=== PATIENT | female | born 1985 ===

== ENCOUNTER → 2018-10-25 | Outpatient (CLI) | payer BC ==
[~2018-10-25] MED LIST: COCO1000 PO; DEXL60CA6 PO; HYDR2TAB4 PO; LACT1CAP4 PO; LEVO50TA86 PO; MED150I IM; METR-1 PO; MULT1TAB64 PO; PANT20TA26 PO; PER PO; [UNRECOGNIZED DRUG - CODE] PO
== END ==
LOC: LAB 14:07
PROVIDERS: ATTEND Physician Assistant
DX: R42 Dizziness and giddiness (principal)
CPT/HCPCS: 36415; 84484; 85379

== ENCOUNTER 2018-10-31 09:33 | Emergency (ER) | payer BC ==
--- NOTE | 2018-10-31 09:42 | ER Report ---
History and Physical Time Seen By MD: 09:42 HPI/ROS CHIEF COMPLAINT: Patient evaluation for possible venous thromboembolic disease HISTORY OF PRESENT ILLNESS: Patient is a 33-year-old female whose past medical history significant for a left upper extremity DVT in 2002 that was treated with 6 months of anticoagulation followed by recurrence of DVT in 2005 followed by diagnosis of thoracic outlet syndrome and rib removal. Patient states that this past week she's had some episodes of dizziness that's positional but also some left arm numbness and there was some concern about recurrence of blood clot. Patient is not on anticoagulation at that time. Patient was seen at [facility] on Wednesday and was told that her EKG shows "some points of the heart not getting enough oxygen". Further she apparently had an elevated d-dimer. She did follow up with her primary care provider late on Wednesday and was started on 10 mg of Cymbalta given her prior history. She was supposed to follow-up in the cancer center for further workup but instead presented to the emergency department for evaluation. I did discuss the case with Dr. Pavon who is the patient's primary care provider. We will perform a medical workup including ultrasound of the left upper extremity and CTA for pulmonary embolism. REVIEW OF SYSTEMS: Respiratory: No cough, no dyspnea. Cardiovascular: No chest pain, no palpitations. Gastrointestinal: No vomiting, no abdominal pain. Musculoskeletal: No back pain. Left arm numbness Allergies: Coded Allergies: metronidazole (Verified Allergy, Intermediate, RASH, 08/19/18) aspirin (Verified Allergy, Mild, 07/09/08) Home Meds Reported Medications Amitriptyline Hcl (AMITRIPTYLINE HCL) 25 Mg Tablet 10/31/18 Levothyroxine Sodium (LEVOTHYROXINE SODIUM) 25 Mcg Tablet 10/31/18 Alprazolam 0.5 Mg Tab (ALPRAZOLAM 0.5 MG TAB) 0.5 Mg Tablet 10/31/18 Rivaroxaban 10 MG (Xarelto 10 MG) 10 Mg Tablet 10/31/18 Multivitamin (MULTI VITAMIN DAILY) 1 Each Tablet, 1 EACH PO QDAY 11/26/17 Lactobacillus Acidophilus (PROBIOTIC) 1 Each Capsule, 1 EACH PO QDAY, CAPSULE 11/26/17 Coconut Oil (COCONUT OIL) 1,000 Mg Capsule, 2000 MG PO QDAY, CAPSULE 11/26/17 Levothyroxine Sodium (LEVOTHYROXINE SODIUM) 50 Mcg Tablet, 25 MCG PO QDAY, TAB 06/16/17 Discontinued Reported Medications Dexlansoprazole (DEXILANT) 60 Mg , 60 MG PO QDAY 11/26/17 Oxycodone/Acetaminophen (OXYCODONE/ACETAMINOPHEN 5MG/325 MG) 5 Mg/325 Mg Tab, 2 TAB PO Q4-6H PRN, #30 TAB 0 Refills TAKE 1 OR 2 TABLETS BY MOUTH EVERY 4 TO 6 HOURS NEEDED FOR PAIN. TAKE WITH FOOD. 10/10/09 Past Medical/Surgical History Straight prior DVT left upper extremity, history of thoracic outlet syndrome Smoking Status: Former Smoker Hx Alcohol Use: Yes Constitutional Vital Sign - Last 24 Hours 10/31/18 10/31/18 10/31/18 10/31/18 09:33 09:40 09:40 09:48 Temp 98.5 Pulse ??? 90 82 Resp 16 B/P (MAP) 116/80 (92) 116/80 Pulse Ox 99 98 O2 Delivery Room Air 10/31/18 10/31/18 10/31/18 10/31/18 10:03 10:33 10:48 11:03 Pulse 97 83 79 81 Resp 11 14 15 Pulse Ox 98 90 98 10/31/18 11:18 Pulse 81 Resp 25 Pulse Ox 96 Physical Exam General/Constitutional: Patient is awake, alert, nontoxic and in no acute respiratory distress. Head: Normocephalic and atraumatic. Eyes: Conjunctival clear, Pupils are equal and reactive to light. Cardiovascular: Heart is regular rate and rhythm without audible murmurs, rubs or gallops. Pulmonary: Lungs are clear to auscultation bilaterally. There are no wheezes, rales, or rhonchi. Chest rise is symmetrical Abdomen: Soft, nontender, no guarding or peritoneal signs. Extremities: No gross deformities, No peripheral cyanosis. Able to move all 4 extremities. Neuro: Alert and oriented X3, Skin: No rashes, skin is warm dry and well perfused. Medical Decision Making Data Points Result Diagram: 10/31/18 1050 10/31/18 1050 Laboratory Hematology Test 10/31/18 10:50 Red Blood Count 4.72 M/uL (4.17-5.56) Mean Corpuscular Volume 93.8 fL (80.0-96.0) Mean Corpuscular Hemoglobin 31.0 pg (26.0-33.0) Mean Corpuscular Hemoglobin Concent 33.1 g/dL (32.0-36.0) Red Cell Distribution Width 13.0 % (11.5-14.5) Mean Platelet Volume 7.7 fL (7.2-11.1) Neutrophils (%) (Auto) 44.9 % (39.4-72.5) Lymphocytes (%) (Auto) 42.6 % (17.6-49.6) Monocytes (%) (Auto) 6.0 % (4.1-12.4) Eosinophils (%) (Auto) 6.0 % (0.4-6.7) Basophils (%) (Auto) 0.5 % (0.3-1.4) Nucleated RBC Relative Count (auto) 0.1 /100WBC Neutrophils # (Auto) 1.7 K/uL (2.0-7.4) Lymphocytes # (Auto) 1.6 K/uL (1.3-3.6) Monocytes # (Auto) 0.2 K/uL (0.3-1.0) Eosinophils # (Auto) 0.2 K/uL (0.0-0.5) Basophils # (Auto) 0.0 K/uL (0.0-0.1) Nucleated RBC Absolute Count (auto) 0.00 K/uL Prothrombin Time 14.8 seconds (12.0-14.4) Prothromb Time International Ratio 1.15 Activated Partial Thromboplast Time 36 seconds (23-35) Sodium Level 140 mmol/L (137-145) Potassium Level 4.1 mmol/L (3.5-5.0) Chloride Level 107 mmol/L (98-107) Carbon Dioxide Level 28 mmol/L (22-31) Blood Urea Nitrogen 9 mg/dl (7-18) Creatinine 0.70 mg/dl (0.52-1.04) Glomerular Filtration Rate Calc > 60.0 Random Glucose 83 mg/dl (75-110) Calcium Level 8.9 mg/dl (8.4-10.2) Total Bilirubin 0.1 mg/dl (0.2-1.3) Aspartate Amino Transf (AST/SGOT) 25 U/L (0-35) Alanine Aminotransferase (ALT/SGPT) 26 U/L (0-56) Alkaline Phosphatase 62 U/L (0-126) Troponin I < 0.012 ng/ml Total Protein 7.3 g/dl (6.3-8.2) Albumin 4.3 g/dl (3.5-5.0) Human Chorionic Gonadotropin, Qual Negative (NEGATIVE) Chemistry Test 10/31/18 10:50 White Blood Count 3.7 k/uL (4.5-11.0) Red Blood Count 4.72 M/uL (4.17-5.56) Hemoglobin 14.7 g/dL (12.0-16.0) Hematocrit 44.3 % (34.0-47.0) Mean Corpuscular Volume 93.8 fL (80.0-96.0) Mean Corpuscular Hemoglobin 31.0 pg (26.0-33.0) Mean Corpuscular Hemoglobin Concent 33.1 g/dL (32.0-36.0) Red Cell Distribution Width 13.0 % (11.5-14.5) Platelet Count 295 K/uL (150-450) Mean Platelet Volume 7.7 fL (7.2-11.1) Neutrophils (%) (Auto) 44.9 % (39.4-72.5) Lymphocytes (%) (Auto) 42.6 % (17.6-49.6) Monocytes (%) (Auto) 6.0 % (4.1-12.4) Eosinophils (%) (Auto) 6.0 % (0.4-6.7) Basophils (%) (Auto) 0.5 % (0.3-1.4) Nucleated RBC Relative Count (auto) 0.1 /100WBC Neutrophils # (Auto) 1.7 K/uL (2.0-7.4) Lymphocytes # (Auto) 1.6 K/uL (1.3-3.6) Monocytes # (Auto) 0.2 K/uL (0.3-1.0) Eosinophils # (Auto) 0.2 K/uL (0.0-0.5) Basophils # (Auto) 0.0 K/uL (0.0-0.1) Nucleated RBC Absolute Count (auto) 0.00 K/uL Prothrombin Time 14.8 seconds (12.0-14.4) Prothromb Time International Ratio 1.15 Activated Partial Thromboplast Time 36 seconds (23-35) Glomerular Filtration Rate Calc > 60.0 Calcium Level 8.9 mg/dl (8.4-10.2) Total Bilirubin 0.1 mg/dl (0.2-1.3) Aspartate Amino Transf (AST/SGOT) 25 U/L (0-35) Alanine Aminotransferase (ALT/SGPT) 26 U/L (0-56) Alkaline Phosphatase 62 U/L (0-126) Troponin I < 0.012 ng/ml Total Protein 7.3 g/dl (6.3-8.2) Albumin 4.3 g/dl (3.5-5.0) Human Chorionic Gonadotropin, Qual Negative (NEGATIVE) Coagulation Test 10/31/18 10:50 Prothrombin Time 14.8 seconds Prothromb Time International Ratio 1.15 Activated Partial Thromboplast Time 36 seconds EKG/Imaging EKG Interpretation EKG shows normal sinus rhythm with a ventricular rate of 80 bpm Monitor Interpretation: Normal Sinus Rhythm Imaging FACILITY: [facility] PATIENT NAME: Karmen Puente : 1985 MR: [id number] V: [id number] EXAM DATE: [id number] ORDERING PHYSICIAN: DAVIDE GALE TECHNOLOGIST: Location: [facility] Patient: Karmen Puente : 1985 Visit/Account:[id number] Date of Sevice: 10/31/2018 EXAMINATION: CTA chest with IV contrast HISTORY: Syncope, chest pain. History of DVT in the left arm. COMPARISON: None. TECHNIQUE: Pulmonary embolus protocol - Thin-slice axial imaging of the chest was performed during maximal pulmonary arterial opacification with intravenous nonionic iodinated contrast. 3D sagittal and coronal slab MIPs and 2D reconstructions in the coronal and sagittal planes were performed to aid in pulmonary embolus detection. Perl Programmer images have been stored on PACS. CONTRAST: 75 mL of IV Isovue-370. One of the following dose optimization techniques was utilized in the performance of this exam: Automated exposure control; adjustment of the mA and/or kV according to the patient's size; or use of an iterative reconstruction technique. Specific details can be referenced in the facility's radiology CT exam operational policy. FINDINGS: CTA CHEST: Please note that this exam is optimized for assessment of the pulmonary arteries and is not intended as a diagnostic study of the thoracic aorta, coronary arteries or venous structures. Angiographic Findings: Pulmonary arteries: There are no filling defects in the main, right, left, lobar, segmental or visualized sub-segmental branches of the pulmonary arterial system. No intraluminal webs or bronchial collaterals. Other vasculature: Negative. Additional non-angiographic findings: Lungs/pleura: Negative. Mediastinum/lyssa: Negative. Heart/pericardium: Negative. Musculoskeletal/body wall: Negative. Lymph nodes: Negative. Upper abdomen: Negative. Lower neck: Negative. IMPRESSION: 1. No evidence of acute or chronic pulmonary embolism. 2. No radiographic evidence of acute cardiopulmonary disease. Report Dictated By: Freida Hernandez MD at 10/31/2018 11:41 AM Report E-Signed By: Freida Hernandez MD at 10/31/2018 11:44 AM WSN:[email or web address] ED Course/Re-evaluation ED Course 10/31/2018 10:10:56 am plan at this time will be venous Doppler ultrasound left upper extremity along with a CT scan of the chest for pulmonary embolism. Decision to Disposition Date: Oct 31, 2018 Decision to Disposition Time: 12:25 Depart Departure Latest Vital Signs Vital Signs Date Time Temp Pulse Resp B/P (MAP) Pulse Ox O2 Delivery O2 Flow Rate FiO2 10/31/18 11:18 81 25 96 10/31/18 09:40 98.5 116/80 Room Air Impression: Primary Impression: Back pain Condition: Improved Disposition: HOME OR SELF-CARE Patient Instructions: Back Pain (ED) Additional Instructions: Continue all your outpatient medications as directed Take Motrin or Tylenol as directed for pain Respiratory follow-up appointment in the next 1-2 weeks with your primary care provider to discuss continued need for the anticoagulant, Xarelto. Problem Qualifiers Primary Impression: Back pain Back pain location: low back pain Chronicity: acute Back pain laterality: unspecified Sciatica presence: without sciatica Qualified Codes: M54.5 - Low back pain DAVIDE GALE MD Oct 31, 2018 09:42
[2018-10-31] MEDS ORDERED: AMIT-106 (09:52)
[2018-10-31] MEDS ORDERED: RIVA10TA (09:52)
[2018-10-31] MEDS ORDERED: ALPR-448 (09:52)
[2018-10-31] MEDS ORDERED: LEVO25TA61 (09:52)
[2018-10-31] MEDS ORDERED: IOPAMIDOL 76% 150 ML INFUS BTL 150 ML ONE (10:18)
[2018-10-31] MEDS ORDERED: NS(*) 0.9% 50 ML BAG 50 ML ONE (10:19)
[2018-10-31 11:02] LABS: PLATELET COUNT, AUTOMATED 295 K/uL (150-450)
[2018-10-31 11:09] LABS: INR 1.15
--- NOTE | 2018-10-31 11:48 | RADIOLOGY IMAGING REPORT ---
FACILITY: [facility] PATIENT NAME: Karmen Puente : 1985 MR: [id number] V: [id number] EXAM DATE: [id number] ORDERING PHYSICIAN: DAVIDE GALE TECHNOLOGIST: Location: [facility] Patient: Karmen Puente : 1985 Visit/Account:[id number] Date of Sevice: 10/31/2018 EXAMINATION: CTA chest with IV contrast HISTORY: Syncope, chest pain. History of DVT in the left arm. COMPARISON: None. TECHNIQUE: Pulmonary embolus protocol - Thin-slice axial imaging of the chest was performed during maximal pulmonary arterial opacification with intravenous nonionic iodinated contrast. 3D sagittal an d coronal slab MIPs and 2D reconstructions in the coronal and sagittal planes were performed to aid i n pulmonary embolus detection. Supervisor Pleating images have been stored on PACS. CONTRAST: 75 mL of IV Isovue-370. One of the following dose optimization techniques was utilized in the performance of this exam: Autom ated exposure control; adjustment of the mA and/or kV according to the patient's size; or use of an i terative reconstruction technique. Specific details can be referenced in the facility's radiology C T exam operational policy. FINDINGS: CTA CHEST: Please note that this exam is optimized for assessment of the pulmonary arteries and is not intended as a diagnostic study of the thoracic aorta, coronary arteries or venous structures. Angiographic Findings: Pulmonary arteries: There are no filling defects in the main, right, left, lobar, segmental or visual ized sub-segmental branches of the pulmonary arterial system. No intraluminal webs or bronchial randall aterals. Other vasculature: Negative. Additional non-angiographic findings: Lungs/pleura: Negative. Mediastinum/lyssa: Negative. Heart/pericardium: Negative. Musculoskeletal/body wall: Negative. Lymph nodes: Negative. Upper abdomen: Negative. Lower neck: Negative. IMPRESSION: 1. No evidence of acute or chronic pulmonary embolism. 2. No radiographic evidence of acute cardiopulmonary disease. Report Dictated By: Freida Hernandez MD at 10/31/2018 11:41 AM Report E-Signed By: Freida Hernandez MD at 10/31/2018 11:44 AM WSN:[email or web address]
[2018-10-31 12:00] VITALS: BP 108/70
--- NOTE | 2018-10-31 12:13 | RADIOLOGY IMAGING REPORT ---
FACILITY: [facility] PATIENT NAME: Karmen Puente : 1985 MR: [id number] V: [id number] EXAM DATE: ORDERING PHYSICIAN: DAVIDE GALE TECHNOLOGIST: Location: [facility] Patient: Karmen Puente : 1985 Visit/Account:[id number] Date of Sevice: 10/31/2018 Venous Doppler ultrasound left upper extremity Indication: Head and neck pain. History of DVT. Patient on Xarelto. Comparison: None available. Findings: There is normal compressibility and blood flow of the left internal jugular vein. There is normal blood flow to the left subclavian vein. There is normal compressibility and blood flow identified within the left axillary vein, brachial vei ns, basilic and cephalic veins. Subcutaneous tissues are unremarkable. IMPRESSION: 1. No evidence of deep venous thrombosis of the left upper extremity. Report Dictated By: Agustín Gaston at 10/31/2018 12:02 PM Report E-Signed By: Agustín Gaston at 10/31/2018 12:09 PM WSN:[id number]
--- NOTE | 2018-10-31 12:20 | EKG ---
FACILITY: [facility] PATIENT NAME: PRATIK LAKHANI : [id number] MR: [id number] V: [id number] EXAM DATE: ORDERING PHYSICIAN: DAVIDE GALE TECHNOLOGIST: AFSHIN Dill Reason : DIZZY Blood Pressure : / mmHG Vent. Rate : 088 BPM Atrial Rate : 088 BPM P-R Int : 158 ms QRS Dur : 082 ms QT Int : 396 ms P-R-T Axes : 067 080 035 degrees QTc Int : 479 ms Normal sinus rhythm Low voltage QRS Septal infarct , age undetermined Abnormal ECG No previous ECGs available Confirmed by Adalberto Gerber ([id number]) on 10/31/2018 8:03:36 PM Referred By: SHAHLA Confirmed By:Adalberto Zapata
== END 2018-10-31 12:33 | disposition home or self-care (01) ==
LOC: ER 09:51
DX: M54.5 Low back pain (principal); R94.31 Abnormal electrocardiogram [ECG] [EKG]
CPT/HCPCS: 71275; 84484; 84703; 85025; 85610; 85730; 93005; 93971; 99284; J7050; Q9967; 82040; 82247; 82310; 82374; 82435; 82565; 82947; 84075; 84132; 84155; 84295; 84450; 84460; 84520

== ENCOUNTER → 2018-11-03 | Outpatient (CLI) | payer BC ==
[~2018-11-03] MED LIST changes: +ALPR-448; +AMIT-106; +LEVO25TA61; +RIVA10TA
== END ==
LOC: US 01:32
PROVIDERS: ATTEND Nurse Practitioner Family
DX: D68.9 Coagulation defect, unspecified (principal); R42 Dizziness and giddiness; R00.2 Palpitations
CPT/HCPCS: 93306

== ENCOUNTER 2018-11-17 11:15 | Outpatient (RCR) | payer BC ==
[2018-11-17 11:34] VITALS: BP 111/70
--- NOTE | 2018-11-17 14:02 | ONCOLOGY CONSULTATION ---
EVENT DATE: November 17, 2018 REFERRING PHYSICIAN OKSANA Sainz REASON FOR CONSULTATION Evaluation and management of left upper extremity deep venous thrombosis with left thoracic outlet syndrome. HEMATOLOGY HISTORY Patient is a 33-year old female who was diagnosed with what looked like left upper extremity deep venous thrombosis in 2002 and patient on December 15, 2005, underwent a transaxillary left first rib resection and anterior scalenectomy for thoracic outlet syndrome. Prior to her surgery, she had ultrasound of the left upper extremity, which did not show any blood clots. CT scan of the upper extremities shows moderate focal narrowing of the distal left subclavian artery as it exits the thoracic outlet between the anterior and the middle scalene muscles. Patient tolerated the procedure very well. She presented recently to her primary care, Rupinder Pavon, with some tingling in the left upper extremity and pain at the infraclavicular area so the patient had Doppler ultrasound, which came back negative for DVT and CTA chest, which was negative for PE. Patient was put at that time on anticoagulation with Eliquis. PAST MEDICAL HISTORY 1. Endometriosis. 2. Hypothyroidism. 3. Celiac disease. 4. Irritable bowel syndrome. 5. History of DVT of left upper extremity. 6. Thoracic outlet syndrome on the left side. PAST SURGICAL HISTORY 1. Transaxillary left first rib resection and anterior scalenectomy for thoracic outlet syndrome. This was done on December 15, 2005. 2. Tonsillectomy and adenoidectomy in 1992. 3. Polypectomy of uterine polyp in 2017. FAMILY HISTORY Maternal grandmother had endocarditis with embolus. SOCIAL HISTORY Patient is with one biological child and two stepchildren. She works for the [employer]. She drinks wine several times per week but denies any abuse of tobacco or illicit drugs. CURRENT MEDICATIONS 1. Amitriptyline 25 mg q.d. 2. Alprazolam 0.5 mg as needed. 3. Levothyroxine 25 mcg once a day. 4. Xarelto 10 mg daily. ALLERGIES Aspirin and, as per patient, she was about near anaphylaxis. She also has problem with Flagyl with itchy rash and nausea. REVIEW OF SYSTEMS CONSTITUTIONAL: No appetite or weight change. No fever, chills or sweating. No recent infection. HEENT: Ears: No tinnitus or hearing problem. Nose: No nasal discharge or epistaxis. Throat: No sore throat or mouth ulcers. Eyes: No diplopia or visual changes. RESPIRATORY: No shortness of breath. No cough, expectoration or hemoptysis. CARDIOVASCULAR: No chest pain, orthopnea, or paroxysmal nocturnal dyspnea (PND). No edema. No palpitations. GASTROINTESTINAL: She has alternating diarrhea and constipation from Celiac disease and irritable bowel syndrome. She has also epigastric pain sometimes. GENITOURINARY: Patient has had heavy periods for years, and she has been seen by a esl instructor, and she was offered uterine ablation, but the patient refused the procedure. As per patient, she has had heavy periods for a total of seven days every month. MUSCULOSKELETAL: No pain in the muscles, joints or bones. NEUROLOGICAL: She has tingling and numbness in the hands and feet. HEMATOLOGIC/LYMPHATIC: She bruises easily. She has fatigue sometime. SKIN: No skin rash or lumps. PSYCHIATRIC: No anxiety or depression. PHYSICAL EXAMINATION GENERAL: Looks stable. Well-developed, well-nourished, and in no acute distress. VITAL SIGNS: Blood pressure 111.70, pulse 86 per minute, respirations 16 per minute, temperature 98.7, pulse ox 97% on room air. HEENT: Head: Atraumatic. No sinus tenderness to palpation. Eyes: No icterus or conjunctivitis. Mouth and Throat: No oral thrush or mucositis. NECK: Supple. No cervical or supraclavicular lymphadenopathy. LUNGS: Clear to auscultation and percussion bilaterally. HEART: Regular rate and rhythm. No gallops, murmurs, clicks or rubs. ABDOMEN: Soft and lax. No tenderness. No hepatosplenomegaly. No masses. EXTREMITIES: No cyanosis, clubbing or edema. LYMPHATICS: No peripheral lymphadenopathy. NEUROLOGICAL: Conscious, alert and oriented x3. No focal motor or sensory deficits. PSYCHIATRIC: Mood and affect appear normal. SKIN: No skin rash, bruise or purpuric eruption. ASSESSMENT Deep venous thrombosis of the left upper extremity due to thoracic outlet syndrome on the left side, first episode in 2002. In 2005, the patient was not sure if she had deep venous thrombosis at that time or not but her Doppler ultrasound at that time was negative for deep venous thrombosis of the left upper extremity and CT scan showed narrowing of her left subclavian vein vessels. Patient ended up having transaxillary left first rib resection and anterior scalenectomy done on December 15, 2005. Patient presented recently with pain in the left inferior clavicular area with tingling in the left upper extremity and she had ultrasound, which came back negative for deep venous thrombosis and CTA chest done recently on October 31, 2018, and it was also negative for pulmonary embolism but patient was put on Xarelto by her primary care as a prophylaxis. Patient is here today to discuss about anticoagulation therapy and I told the patient as long as she has two episodes of deep venous thrombosis in the past in her left upper extremity. I am planning to check her thrombophilia workup and if it is positive then the patient will be a candidate for life-long anticoagulation but if it is negative then we may stop her anticoagulation as the patient does not have any evidence of recent blood clotting. Patient is agreeable with the plan of management. PLAN 1. Thrombophilia workup. 2. Patient to return after the above for further evaluation and management. 3. Patient to contact us for any new concerns or complaints. ROSITA
== END 2018-12-19 14:59 | disposition home or self-care (01) ==
LOC: ONC 11:15
PROVIDERS: ATTEND Internal Medicine Hematology
DX: Z86.718 Personal history of other venous thrombosis and embolism (principal); Z79.01 Long term (current) use of anticoagulants
CPT/HCPCS: 99202

== ENCOUNTER 2019-01-18 08:15 | Outpatient (RCR) | payer BC ==
--- NOTE | 2019-01-13 15:12 | NUR ---
Left patient a message regarding labs to be done.
[2019-01-18 08:55] VITALS: BP 111/66
== END 2019-02-08 12:22 | disposition home or self-care (01) ==
LOC: SPU 08:15
PROVIDERS: ATTEND Internal Medicine Hematology
DX: I82.409 Acute embolism and thrombosis of unspecified deep veins of unspecified lower extremity (principal)
CPT/HCPCS: 36415; 81291; 83090; 85300; 85301; 85302; 85303; 85305; 85306; 85610; 85613; 85730; 86146; 86148